=== PATIENT | female | born 1995 | race Caucasian/White ===

== ENCOUNTER → 2017-02-15 | Outpatient (REF) | payer OTHER ==
[~2017-02-15] MED LIST: ACET1TAB16 PO; ADDE1TAB14 PO; AMPH1TAB2 PO; CONC18TA14 PO; GRAL600T PO; HYDR-2808 PO; HYDR-643 PO; MECL-68 PO; NEXI40CA PO; TRAZO50TA PO; TRI NESSA PO; WELLTAB38 PO
== END ==
LOC: M LAB REF 16:31
PROVIDERS: ATTEND Obstetrics & Gynecology
DX: R39.89 Other symptoms and signs involving the genitourinary system (principal)

== ENCOUNTER → 2017-02-28 | Day surgery (SDC) | payer OTHER ==
[~2017-02-28] VITALS: Ht 165.1 cm; Wt 63.5 kg
[~2017-02-28] MED LIST changes: +BOTULINUM INJ 100 UNITS (J0585) As Ordered ONE; +IBUPROFEN 400 MG TAB PO PRN; +LIDOCAINE 2% INJ 100 MG/5 ML SDV (FOR ANES.) As Ordered ONE; +LR 1,000 ML IV ONE; +LR 1,000 ML IV SCH; +METOCLOPRAMIDE INJ 10MG/2ML VIAL (J2765) IV PRN; +MIDAZOLAM INJ 2 MG/2 ML VIAL (J2250) As Ordered ONE; +ONDANSETRON 4MG/2ML VIAL (J2405) As Ordered ONE; +ONDANSETRON 4MG/2ML VIAL (J2405) IV PRN; +PERCOCET 5MG/325MG TAB PO PRN; +PROPOFOL 200 MG/20 ML VIAL As Ordered ONE; +ceFAZolin SOD 1 GM in D5W MINI-BAG PLUS 50 ML IV ONE; +fentaNYL 100 MCG/2 ML INJECTION (J3010) As Ordered ONE; +fentaNYL 100 MCG/2 ML INJECTION (J3010) IV PRN
[2017-02-28 15:05] LABS: CONTROL LINE UCG INT CTR LINE PRESENT
[2017-02-28 20:00] VITALS: BP 108/65
--- NOTE | 2017-03-01 17:47 | RO ---
DATE OF PROCEDURE: 02/28/2017 PREOPERATIVE DIAGNOSIS: Interstitial cystitis with pain. POSTOPERATIVE DIAGNOSIS: Interstitial cystitis with pain. Narrow urethra. PROCEDURE: Cystourethroscopy with urethral dilation and hydrodilation of the bladder. SURGEON: Dr. Nancie Londono [employer] MANAGER: ANESTHESIA: Propofol. SPECIMENS: None. DESCRIPTION OF PROCEDURE: Mercedes was brought to the operating room where sufficient Propofol anesthesia was induced, and she was prepped, draped and positioned in the usual fashion. After identification, an attempt was made to place a 21 cystoscope, and I was absolutely unable to do so. I had the introducer in, and I was unable to pass the scope. We went down to the smallest introducer that we had and had some difficulty placing that, went up to the 17 introducer, placed that and then progressed up to the 21 and essentially dilated the urethra in order to allow introduction of the scope. Following this, we were able to visualize the bladder cavity, and there were no Hunner's lesions, nor polyps, nor stones visualized. She did not have any undue inflammation, but she does have a small bladder as well as a small urethra, and we went ahead and did hydrodilation and held it under pressure of just gravity, not pressure bag but just gravity for 3 minutes. We also decompressed the bladder and made sure to visualize the urethra. I did not see nor feel under anesthesia any diverticula or physical impediment at the urethra other than its narrowness, so I did not feel a physical lesion obstructing the urethra but rather the urethra itself had a central band, and it was quite narrow and had to be dilated for even introduction of a 21 cystoscope. So, we went ahead and made sure we left it in there long enough to impact and keep that dilation effective for a time. We then ended the procedure. Again, the bladder was emptied before the end of the procedure. Estimated blood loss for the procedure was 0 mL. Fluid replacement was crystalloid. Complications: None. Condition and Disposition: Mercedes tolerated the procedure well and was recovering in the recovery room in good condition.
== END | disposition home or self-care (01) ==
LOC: M SDC 14:29
PROVIDERS: ATTEND Obstetrics & Gynecology
DX: N30.10 Interstitial cystitis (chronic) without hematuria (principal); N35.9 Urethral stricture, unspecified; I73.9 Peripheral vascular disease, unspecified; K21.9 Gastro-esophageal reflux disease without esophagitis; D64.9 Anemia, unspecified; F41.9 Anxiety disorder, unspecified; F32.9 Major depressive disorder, single episode, unspecified; M79.7 Fibromyalgia; Z79.899 Other long term (current) drug therapy; Q79.6 Ehlers-Danlos syndromes; Z87.891 Personal history of nicotine dependence
CPT/HCPCS: 52260; 84703; J0690; J2250; J2405; J3010

== ENCOUNTER → 2022-05-08 | Outpatient (CLI) | payer MEDICAID, OTHER ==
[~2022-05-08] MED LIST changes: -ACET1TAB16 PO; +ACET300T48 PO; -BOTULINUM INJ 100 UNITS (J0585) As Ordered ONE; -HYDR-2808 PO; +HYDR-4429 PO; -IBUPROFEN 400 MG TAB PO PRN; -LIDOCAINE 2% INJ 100 MG/5 ML SDV (FOR ANES.) As Ordered ONE; -LR 1,000 ML IV ONE; -LR 1,000 ML IV SCH; -MECL-68 PO; +MECL1TAB31 PO; -METOCLOPRAMIDE INJ 10MG/2ML VIAL (J2765) IV PRN; -MIDAZOLAM INJ 2 MG/2 ML VIAL (J2250) As Ordered ONE; -ONDANSETRON 4MG/2ML VIAL (J2405) As Ordered ONE; -ONDANSETRON 4MG/2ML VIAL (J2405) IV PRN; -PERCOCET 5MG/325MG TAB PO PRN; -PROPOFOL 200 MG/20 ML VIAL As Ordered ONE; +TRAZ1TAB6 PO; -TRAZO50TA PO; -ceFAZolin SOD 1 GM in D5W MINI-BAG PLUS 50 ML IV ONE; -fentaNYL 100 MCG/2 ML INJECTION (J3010) As Ordered ONE; -fentaNYL 100 MCG/2 ML INJECTION (J3010) IV PRN
== END ==
LOC: M LABSMTC 10:27
PROVIDERS: ATTEND Anesthesiology
DX: Z01.818 Encounter for other preprocedural examination (principal); Z11.52 Encounter for screening for COVID-19

== ENCOUNTER 2022-05-11 07:21 | Day surgery (SDC) | payer OTHER ==
[~2022-05-11] VITALS: Ht 162.6 cm; Wt 73.4 kg
[2022-05-11] MEDS ORDERED: LR 1,000 ML IV SCH ×2 (07:50→10:50)
[2022-05-11] MEDS ORDERED: NORG1TAB37 (07:55)
[2022-05-11] MEDS ORDERED: AMOX875T2 (07:55)
[2022-05-11] MEDS ORDERED: ROCURONIUM BROMIDE 50 MG/5 ML VIAL As Ordered ONE (08:08)
[2022-05-11] MEDS ORDERED: LIDOCAINE 2% 100MG/5ML SDV (FOR ANES.) As Ordered ONE (08:09)
[2022-05-11] MEDS ORDERED: MIDAZOLAM INJ 2MG/2ML VIAL (J2250 PER 1MG) As Ordered ONE (08:11)
[2022-05-11] MEDS ORDERED: fentaNYL 100 MCG/2 ML INJECTION As Ordered ONE (08:12)
[2022-05-11] MEDS ORDERED: dexameTHASONE 4 MG/ML 1ML VIAL (J1100 PER 1MG) As Ordered ONE (08:13)
[2022-05-11] MEDS ORDERED: propofoL 200 MG/20 ML VIAL As Ordered ONE (08:14)
[2022-05-11] MEDS ORDERED: LIDOCAINE W/EPINEPHRINE 1% 20ML VIAL As Ordered ONE (09:03)
[2022-05-11] MEDS ORDERED: ACETAMINOPHEN 1000MG 100ML IV BTL (OFIRMEV) (J0131 PER 10MG) As Ordered ONE (10:14)
[2022-05-11] MEDS ORDERED: ONDANSETRON 4MG 2ML VIAL As Ordered ONE (10:25)
[2022-05-11] MEDS ORDERED: SUGAMMADEX SODIUM 500 MG/5 ML VIAL (BRIDION) As Ordered ONE (10:26)
[2022-05-11] MEDS ORDERED: METOCLOPRAMIDE INJ 10MG/2ML VIAL (J2765 PER 1) IV PRN (10:50)
[2022-05-11] MEDS ORDERED: ONDANSETRON 4MG 2ML VIAL IV PRN (10:50)
[2022-05-11] MEDS ORDERED: KETOROLAC 30 MG/ML 1ML VIAL IV ONE (11:00)
[2022-05-11] MEDS: oxyCODONE 5MG TAB PO PRN ×2 (11:04→11:36)
[2022-05-11] MEDS: fentaNYL 100 MCG/2 ML INJECTION IV PRN ×4 (11:05→11:23)
[2022-05-11 12:07] VITALS: BP 110/66
== END 2022-05-11 12:35 | disposition home or self-care (01) ==
LOC: M SDC 07:21
PROVIDERS: ATTEND Dentist Oral and Maxillofacial Surgery
DX: K02.9 Dental caries, unspecified (principal); K01.1 Impacted teeth; K58.8 Other irritable bowel syndrome; I73.9 Peripheral vascular disease, unspecified; K21.9 Gastro-esophageal reflux disease without esophagitis; R21 Rash and other nonspecific skin eruption; M79.7 Fibromyalgia; G43.909 Migraine, unspecified, not intractable, without status migrainosus; F17.210 Nicotine dependence, cigarettes, uncomplicated; Q79.60 Ehlers-Danlos syndrome, unspecified; Z91.040 Latex allergy status; Z79.899 Other long term (current) drug therapy; F41.9 Anxiety disorder, unspecified; F32.A Depression, unspecified
CPT/HCPCS: 81025; 88300; D7210; D9223; J0131; J1100; J1885; J2250; J2405; J3010